=== PATIENT | male | born 1950 | race Caucasian/White ===

== ENCOUNTER 2021-06-14 10:59 | Day surgery (SDC) | payer MEDICARE, OTHER ==
[~2021-06-14] VITALS: Ht 170.2 cm; Wt 69.7 kg
[2021-06-14] MEDS ORDERED: OMEG1CAP23 PO (11:56)
[2021-06-14] MEDS ORDERED: HYDROCHLOROTH12.5 MG PO (11:56)
[2021-06-14] MEDS ORDERED: EMPA10TA PO (11:56)
[2021-06-14] MEDS ORDERED: LINA5TAB PO (11:56)
[2021-06-14] MEDS ORDERED: ENAL20TA9 PO (11:56)
[2021-06-14] MEDS ORDERED: ATOR20TA37 PO (11:56)
[2021-06-14] MEDS ORDERED: ASPI81TA45 PO (11:56)
[2021-06-14] MEDS ORDERED: METF10007 PO (11:56)
[2021-06-14] MEDS ORDERED: CHOL10003 PO (11:56)
[2021-06-14] MEDS ORDERED: vitamin b12 PO (11:56)
[2021-06-14 11:57] VITALS: BP 146/88
[2021-06-14] MEDS ORDERED: LACTATED RINGERS 1,000 ML IV SCH (12:00)
[2021-06-14] MEDS ORDERED: CHLORHEXIDINE 15 ML UDC PO ONE (12:00)
[2021-06-14 12:32] LABS: ALANINE AMINOTRANSFERASE 33 U/L (12-78); ALBUMIN 3.6 g/dL (3.4-5.0); ANION GAP 13 mmol/L (5-15); CALCIUM 8.9 mg/dL (8.5-10.1); CHLORIDE 99 mmol/L (98-107)
[2021-06-14 12:34] LABS: CREATININE 0.76 mg/dL (0.7-1.3)
[2021-06-14 12:35] LABS: ALKALINE PHOSPHATASE 88 U/L (45-117); BILIRUBIN,TOTAL 0.7 mg/dL (0.2-1.0); TOTAL PROTEIN 7.7 g/dL (6.4-8.2)
[2021-06-14] MEDS ORDERED: MIDAZOLAM 1 MG/ML, 2ML ONE (12:45)
[2021-06-14] MEDS ORDERED: PROPOFOL 50 ML ONE (12:46)
== END 2021-06-14 15:45 | disposition home or self-care (01) ==
LOC: OUT 10:59
PROVIDERS: ATTEND Internal Medicine Gastroenterology
DX: K59.00 Constipation, unspecified (principal); D12.2 Benign neoplasm of ascending colon; K29.00 Acute gastritis without bleeding; K57.30 Diverticulosis of large intestine without perforation or abscess without bleeding; K64.9 Unspecified hemorrhoids; R63.4 Abnormal weight loss; I10 Essential (primary) hypertension; E11.9 Type 2 diabetes mellitus without complications; E78.5 Hyperlipidemia, unspecified; Z20.822 Contact with and (suspected) exposure to COVID-19; Z79.82 Long term (current) use of aspirin; Z79.84 Long term (current) use of oral hypoglycemic drugs; Z79.899 Other long term (current) drug therapy; Z86.010 Personal history of colon polyps; Z87.891 Personal history of nicotine dependence; Z90.49 Acquired absence of other specified parts of digestive tract
CPT/HCPCS: 43239; 45380; 80053; 82962; 87635; 88305; 93005; A4648; J2250; J2704